=== PATIENT | male | born 1975 | race Caucasian/White ===

== ENCOUNTER 2016-08-22 08:28 | Emergency (ER) | payer MEDICAID ==
[~2016-08-22] VITALS: Ht 177.8 cm; Wt 90.5 kg
[2016-08-22] MEDS ORDERED: [UNRECOGNIZED DRUG - OTHER] PO (08:39)
[2016-08-22 10:00] LABS: BASOPHILS # (AUTO) 0.02 K/uL (0.00-0.20); BASOPHILS % (AUTO) 0.3 % (0.0-2.0); EOSINOPHILS # (AUTO) 0.06 K/uL (0.00-0.70); EOSINOPHILS % (AUTO) 1.27 % (1.0-6.0); HEMATOCRIT 42.1 % (41-53); LYMPHOCYTES # (AUTO) 1.3 K/uL (1.0-4.8); MEAN CORPUSCULAR HEMOGLOBIN 30.7 pg (26.0-34.0); MEAN CORPUSCULAR HGB CONC 33.2 G/dL (31.0-37.0); MEAN CORPUSCULAR VOLUME 93 fL (80-100); MONOCYTES # (AUTO) 0.6 K/uL (0.1-1.0); MONOCYTES % (AUTO) 13.1 % (2.0-9.0); NEUTROPHILS # (AUTO) 2.7 K/uL (1.8-7.7); NEUTROPHILS % (AUTO) 57.3 % (40.0-70.0); PLATELET COUNT (AUTO) 227 K/uL (150-450); RED BLOOD CELL COUNT(AUTO) 4.55 MIL/uL (4.50-5.90); RED CELL DISTRIBUTION WIDTH 12.8 % (11.5-14.5); WHITE BLOOD COUNT (AUTO) 4.7 K/uL (4.5-11.0)
[2016-08-22 10:05] LABS: ANION GAP 10 mmol/L (8-16); CALCIUM, TOTAL 8.9 mg/dL (8.8-10.5); CARBON DIOXIDE 28 mmol/L (22-29); CHLORIDE 102 mmol/L (98-107); CREATININE 0.79 mg/dL (0.60-1.30); GLOMERULAR FILTR. RATE CALC > 60 mL/min (>60); POTASSIUM 4.3 mmol/L (3.5-5.1); SODIUM SERUM 140 mmol/L (136-145); UREA NITROGEN, BLOOD 11 mg/dL (7-18)
[2016-08-22 10:11] LABS: ALANINE AMINOTRANSFERASE 77 U/L (12-78); ALBUMIN 4.4 g/dL (3.4-5.0); ASPARTATE AMINOTRANSFERASE 39 U/L (15-37); BILIRUBIN,TOTAL 0.5 mg/dL (0.1-1.0)
[2016-08-22 10:38] LABS: THYROID STIMULATING HORMONE 1.25 uIU/mL (0.36-3.74)
[2016-08-22 11:20] VITALS: BP 118/61
== END 2016-08-22 11:33 | disposition home or self-care (01) ==
LOC: EMS 08:32
DX: F41.1 Generalized anxiety disorder (principal); I10 Essential (primary) hypertension; F10.10 Alcohol abuse, uncomplicated; F12.90 Cannabis use, unspecified, uncomplicated; E78.00 Pure hypercholesterolemia, unspecified; K85.90 Acute pancreatitis without necrosis or infection, unspecified
CPT/HCPCS: 84443; 99284

== ENCOUNTER 2016-09-17 07:26 | Emergency (ER) | payer MEDICAID ==
[~2016-09-17] VITALS: Ht 177.8 cm; Wt 86.3 kg
[~2016-09-17 07:26] MED LIST: [UNRECOGNIZED DRUG - OTHER] PO
[2016-09-17] MEDS ORDERED: CLON.5 PO (07:44)
[2016-09-17 08:15] VITALS: BP 148/89
== END 2016-09-17 08:24 | disposition home or self-care (01) ==
LOC: EMS 07:28
DX: F41.0 Panic disorder [episodic paroxysmal anxiety] (principal); E78.00 Pure hypercholesterolemia, unspecified
CPT/HCPCS: 99281